=== PATIENT | female | born 1970 | race Caucasian/White ===

== ENCOUNTER 2018-05-07 12:25 | Day surgery (SDC) | payer OTHER ==
[~2018-05-07 12:25] MED LIST: Buffered Lidocaine 1% SYRIN* 1 ML/SYRINGE INTRADERM ONE; Lactated Ringers 1000 ML Bag* 1,000 ML IV SCH
[2018-05-07] MEDS ORDERED: ceFAZolin 2 GM in NS PREMIX(*) 2 GM/100 ML BAG IVPB ONE (12:58)
[2018-05-07 13:36] LABS: ABS Basophils 0 10^3/ul (0-0.2); ABS Eosinophils 0.1 10^3/ul (0-0.6); ABS Lymphocytes 1.6 10^3/ul (1.0-4.8); ABS Monocytes 0.4 10^3/ul (0-0.8); ABS Neutrophils 3.2 10^3/ul (1.5-7.7); ABS Nucleated RBC 0 10^3/ul; Eosinophil % 1.2 %; Hematocrit 43 % (33-41); Hemoglobin 14.4 g/dL (12.0-16.0); Lymphocyte % 29.7 %; Mean Corpuscular HGB Conc 34 g/dL (31-36); Mean Corpuscular Hemoglobin 33 pg (27-31); Mean Corpuscular Volume 99 fL (80-97); Mean Platelet Volume 8.8 fL (7.4-10.4); Nucleated Red Blood Cells % 0; Platelet Count 224 10^3/uL (150-450); Red Blood Count 4.34 10^6 /uL (3.70-4.87); Red Cell Distribution Width 13 % (10.5-15); White Blood Count 5.4 10^3/uL (3.5-10.8)
[2018-05-07] MEDS ORDERED: Propofol* 10 MG/ML 20 ML BTL ONE (14:40)
[2018-05-07] MEDS ORDERED: Dexamethasone IV* 4 MG/ML 1 ML (4 MG) ONE (14:40)
[2018-05-07] MEDS ORDERED: Ondansetron INJ* 2 MG/ML VIAL ONE (14:40)
[2018-05-07] MEDS ORDERED: fentaNYL* 50 MCG/ML 2 ML VIAL (100 MCG VIAL) ONE (14:41)
[2018-05-07] MEDS ORDERED: Midazolam* 1 MG/ML 5 ML VIAL (5 MG) ONE (14:41)
[2018-05-07] MEDS ORDERED: Ketorolac INJ* 30 MG/ML 1 ML VIAL ONE (15:07)
[2018-05-07] MEDS ORDERED: Ondansetron INJ* 2 MG/ML VIAL IV PRN (15:10)
[2018-05-07] MEDS ORDERED: DiMENhydriNATE IV* 50 MG/ML VIAL IV PUSH PRN (15:10)
[2018-05-07] MEDS ORDERED: fentaNYL* 50 MCG/ML 2 ML VIAL (100 MCG VIAL) IV PRN (15:10)
[2018-05-07] MEDS ORDERED: oxyCODONE/Acetamin 5/325 MG* TAB PO PRN (15:10)
[2018-05-07] MEDS ORDERED: Naloxone* 0.4 MG/ML 1 ML VIAL IV PRN (15:10)
[2018-05-07 16:55] VITALS: BP 107/72
--- NOTE | 2018-05-07 22:08 | OP ---
AMENDED REPORT NOW INCLUDES DATE OF OPERATION - ESIGNED BEFORE ADJUSTMENT * CC: [facility] * DATE OF OPERATION: 05/07/18 - [facility] DATE OF : 72 SURGEON: Gurpreet Davison MD ANESTHESIOLOGIST: Dr. Duncan. ANESTHESIA: General PRE-OP DIAGNOSIS: Retained Paragard intrauterine device. POST-OP DIAGNOSIS: Retained Paragard intrauterine device. OPERATIVE PROCEDURE: Dilation of the cervix, hysteroscopy, operative hysteroscope removal of retained IUD. ESTIMATED BLOOD LOSS: Minimal, less than 20 cc. FLUIDS: Per anesthesia. DRAINS: None. FINDINGS: Small anteverted uterus, no adnexal masses palpated. The IUD was at the fundus. It was intact. The strings were wrapped around the body of the IUD. COMPLICATIONS: None. COUNTS: Sponge counts correct x2. The patient tolerated the procedure well and was brought to recovery room awake and in stable condition. DESCRIPTION OF PROCEDURE: The patient was brought to the operating room. When general anesthesia was found to be adequate, the patient was prepped and draped in the usual sterile fashion in the dorsal lithotomy position. Time-out was performed. Exam under anesthesia was performed with the above findings noted. The weighted speculum was placed in the vagina, the anterior lip of the cervix was grasped with a single-tooth tenaculum. The IUD strings were not visualized or palpated. The cervix was gently and easily dilated with the graduated Malhotra dilators. The hysteroscope was introduced. The IUD was seen found to be intact sitting normally at the fundus, the IUD strings were found to be wrapped around the lower body of the IUD. The IUD strings were grasped with miniature grasper and with gentle traction on the strings, the entire IUD was removed. The IUD was examined and found to be intact with both strings, the cervix was examined carefully as there had been a cervical polyp at an office visit, no polyps were seen. There were some nabothian cyst. Excellent hemostasis was noted at the tenaculum site, all instruments removed from the vagina. The patient tolerated the procedure well and was brought to recovery room, awake and in stable condition. [id number]/[facility] #: [id number] [facility]
== END 2018-05-07 16:56 | disposition home or self-care (01) ==
LOC: OR 12:25
PROVIDERS: ATTEND Obstetrics & Gynecology
DX: T83.39XS Other mechanical complication of intrauterine contraceptive device, sequela (principal); D25.9 Leiomyoma of uterus, unspecified; E78.5 Hyperlipidemia, unspecified
CPT/HCPCS: 36415; 81025; 85025; 86850; 86900; 86901; J0690; J1100; J1885; J2250; J2405; J2704; J3010